=== PATIENT | female | born 1995 | race Caucasian/White ===

== ENCOUNTER 2016-12-10 00:43 | Emergency (ER) | payer OTHER ==
[~2016-12-10] VITALS: Ht 170.2 cm; Wt 89.7 kg
[2016-12-10 01:49] LABS: HEMATOCRIT 40.7 % (36.0-46.0); MCH 27.6 PG (29.0-34.0); MCHC 32.7 G/DL (30.0-36.0); MCV 84.4 FL (83-99); PLATELET COUNT 323 K/uL (156-360); RBC DIS.WIDTH-CV 12.9 % (11.8-14.6); RBC DIS.WIDTH-SD 39.6 % (39-53); RED BLOOD COUNT 4.82 M/uL (3.80-5.20); WHITE BLOOD COUNT 7.9 K/uL (4.1-10.2)
[2016-12-10 02:01] LABS: CHLORIDE 104 mEq/L (99-109); POTASSIUM 4.3 mEq/L (3.7-5.4); SODIUM 137 mEq/L (136-147)
[2016-12-10 02:03] LABS: GLUCOSE 109 mg/dL (70-99)
[2016-12-10 02:04] LABS: ANION GAP 9 MEQ/L (2-14)
[2016-12-10 02:05] LABS: TOTAL BILIRUBIN 0.3 mg/dL (0.0-1.0)
[2016-12-10 02:07] LABS: ALKALINE PHOSPHATASE 94 IU/L (3-129); GFR ESTIMATE (CALCULATED) > 59 mL/min/
[2016-12-10 02:08] LABS: UREA NITROGEN (BUN) 7 mg/dL (9-23)
[2016-12-10 02:10] LABS: LIPASE 34 U/L (1.0-51.0)
[2016-12-10 02:16] LABS: QUANTITATIVE HCG < 4.0 MIU/ML
[2016-12-10 02:59] LABS: ADD MIUA? YES; BILIRUBIN NEGATIVE; BLOOD NEGATIVE; COLOR YELLOW ((YELLOW)); GLUCOSE (STRIP) NEGATIVE; KETONES NEGATIVE; LEUKOCYTES SMALL; NITRITE NEGATIVE; PROTEIN (STRIP) NEGATIVE; SPECIFIC GRAVITY 1.018 (1.000-1.030); UROBILINOGEN 0.2 MG/DL (0.2-1.0)
[2016-12-10 03:04] LABS: BACTERIA RARE /HPF; EPITHELIAL CELLS 2+ /HPF; HYALINE CASTS 0-5 /LPF; MUCUS TRACE /LPF; RED BLOOD CELLS 0-5 /HPF (0-5); UCUL ADDED? NO; WHITE BLOOD CELLS 0-5 /HPF (0-5)
[2016-12-10] MEDS ORDERED: BENTYL20 MG PO (05:30)
[2016-12-10] MEDS ORDERED: PERCOCET 5/31 TABLET PO (05:30)
[2016-12-10] MEDS ORDERED: ZOFRAN ODT4 MG PO (05:30)
[2016-12-10 05:46] VITALS: BP 110/75
== END 2016-12-10 05:47 | disposition home or self-care (01) ==
LOC: EME 00:43
DX: R10.13 Epigastric pain (principal)
CPT/HCPCS: 76705; 80053; 81003; 83690; 84702; 85027; 99281; 99284

== ENCOUNTER 2016-12-17 08:24 | Emergency (ER) | payer OTHER ==
[~2016-12-17] VITALS: Ht 170.2 cm; Wt 88.8 kg
[~2016-12-17 08:24] MED LIST: BENTYL20 MG PO; PERCOCET 5/31 TABLET PO; ZOFRAN ODT4 MG PO
[2016-12-17] MEDS ORDERED: JUNEL1 EACH PO (08:40)
[2016-12-17 10:30] LABS: HEMATOCRIT 39.5 % (36.0-46.0); MCH 27.3 PG (29.0-34.0); MCHC 32.2 G/DL (30.0-36.0); MCV 84.8 FL (83-99); MEAN PLAT.VOLUME 9.8 uM^3 (9.5-12.4); PLATELET COUNT 370 K/uL (156-360); RBC DIS.WIDTH-SD 40.2 % (39-53); RED BLOOD COUNT 4.66 M/uL (3.80-5.20); WHITE BLOOD COUNT 11.9 K/uL (4.1-10.2)
[2016-12-17 10:36] LABS: ADD MIUA? YES; BILIRUBIN NEGATIVE; BLOOD MODERATE; COLOR YELLOW ((YELLOW)); GLUCOSE (STRIP) NEGATIVE; KETONES NEGATIVE; LEUKOCYTES SMALL; NITRITE NEGATIVE; PROTEIN (STRIP) NEGATIVE; SPECIFIC GRAVITY 1.023 (1.000-1.030); UROBILINOGEN 0.2 MG/DL (0.2-1.0)
[2016-12-17 10:40] LABS: CHLORIDE 102 mEq/L (99-109); POTASSIUM 4.8 mEq/L (3.7-5.4); SODIUM 135 mEq/L (136-147)
[2016-12-17 10:42] LABS: GLUCOSE 88 mg/dL (70-99)
[2016-12-17 10:43] LABS: ANION GAP 10 MEQ/L (2-14)
[2016-12-17 10:44] LABS: TOTAL BILIRUBIN 0.2 mg/dL (0.0-1.0)
[2016-12-17 10:46] LABS: ALKALINE PHOSPHATASE 82 IU/L (3-129); GFR ESTIMATE (CALCULATED) > 59 mL/min/
[2016-12-17 10:47] LABS: UREA NITROGEN (BUN) 11 mg/dL (9-23)
[2016-12-17 10:48] LABS: DIRECT BILIRUBIN 0.1 mg/dL (0.0-0.3)
[2016-12-17 10:49] LABS: LIPASE 73 U/L (1.0-51.0)
[2016-12-17 10:55] LABS: BACTERIA RARE /HPF; EPITHELIAL CELLS 1+ /HPF; HYALINE CASTS 0-5 /LPF; MUCUS 1+ /LPF; RED BLOOD CELLS 0-5 /HPF (0-5); UCUL ADDED? NO
[2016-12-17 10:56] LABS: QUANTITATIVE HCG < 4.0 MIU/ML
[2016-12-17] MEDS ORDERED: PERCOCET 5/31 TABLET PO (12:26)
[2016-12-17] MEDS ORDERED: ZOFRAN4 MG PO (12:26)
[2016-12-17 12:43] VITALS: BP 140/92
== END 2016-12-17 12:44 | disposition home or self-care (01) ==
LOC: EME 08:24
PROVIDERS: Emergency Medicine
DX: K52.9 Noninfective gastroenteritis and colitis, unspecified (principal)
CPT/HCPCS: 74176; 80048; 80076; 81003; 83690; 84702; 85027; 87086; 99281; 99283

== ENCOUNTER 2017-01-03 10:36 | Emergency (ER) | payer OTHER ==
[~2017-01-03] VITALS: Ht 170.2 cm; Wt 86.6 kg
[~2017-01-03 10:36] MED LIST changes: +JUNEL1 EACH PO; +ZOFRAN4 MG PO
[2017-01-03 12:04] LABS: HEMATOCRIT 42.7 % (36.0-46.0); MCH 27.4 PG (29.0-34.0); MCHC 32.3 G/DL (30.0-36.0); MCV 84.9 FL (83-99); MEAN PLAT.VOLUME 10.2 uM^3 (9.5-12.4); PLATELET COUNT 360 K/uL (156-360); RBC DIS.WIDTH-CV 12.8 % (11.8-14.6); RBC DIS.WIDTH-SD 39.4 % (39-53); RED BLOOD COUNT 5.03 M/uL (3.80-5.20); WHITE BLOOD COUNT 11.2 K/uL (4.1-10.2)
[2017-01-03 12:10] LABS: INTERNAL CONTROL VALID? YES
[2017-01-03 12:12] LABS: ADD MIUA? YES; BILIRUBIN NEGATIVE; BLOOD NEGATIVE; COLOR AMBER ((YELLOW)); GLUCOSE (STRIP) NEGATIVE; KETONES NEGATIVE; LEUKOCYTES MODERATE; NITRITE NEGATIVE; PROTEIN (STRIP) 30; UROBILINOGEN 0.2 MG/DL (0.2-1.0)
[2017-01-03 12:16] LABS: CHLORIDE 100 mEq/L (99-109); POTASSIUM 3.7 mEq/L (3.7-5.4); SODIUM 135 mEq/L (136-147)
[2017-01-03 12:18] LABS: GLUCOSE 95 mg/dL (70-99)
[2017-01-03 12:19] LABS: ANION GAP 10 MEQ/L (2-14)
[2017-01-03 12:21] LABS: ALKALINE PHOSPHATASE 121 IU/L (3-129)
[2017-01-03 12:22] LABS: BACTERIA 1+ /HPF; CALCIUM OXALATE CRYSTALS 2+ /HPF; EPITHELIAL CELLS 2+ /HPF; HYALINE CASTS 0-5 /LPF; MUCUS 1+ /LPF; UCUL ADDED? YES
[2017-01-03 12:22] LABS: GFR ESTIMATE (CALCULATED) > 59 mL/min/
[2017-01-03 12:23] LABS: UREA NITROGEN (BUN) 10 mg/dL (9-23)
[2017-01-03 12:25] LABS: LIPASE 66 U/L (1.0-51.0)
[2017-01-03] MEDS ORDERED: ZOFRAN ODT4 MG PO (13:54)
[2017-01-03] MEDS ORDERED: TRAMADOL HCL50 MG PO (13:54)
[2017-01-03] MEDS ORDERED: MACROBID100 MG PO (13:54)
[2017-01-03 14:18] VITALS: BP 132/87
== END 2017-01-03 14:19 | disposition home or self-care (01) ==
LOC: EME 10:36
PROVIDERS: Nurse Practitioner Family
DX: K80.20 Calculus of gallbladder without cholecystitis without obstruction (principal); N39.0 Urinary tract infection, site not specified; K76.0 Fatty (change of) liver, not elsewhere classified
CPT/HCPCS: 76705; 80053; 81003; 83690; 84703; 85027; 87086; 99281; 99283